=== PATIENT | male | born 1945 | race Hispanic/Latino ===

== ENCOUNTER 2019-01-07 08:42 | Day surgery (SDC) | payer MEDICARE ==
[2019-01-05 14:34] LABS: BASOPHILS % (AUTO) 0.8 % (0.0-5.0); EOSINOPHILS % (AUTO) 4.7 % (0.0-8.0); HEMATOCRIT 41.9 % (42-54); LYMPHOCYTES % (AUTO) 30.5 % (21.0-51.0); MEAN CORPUSCULAR HEMOGLOBIN 33.7 pg (27.0-33.0); MEAN CORPUSCULAR HGB CONC 34.6 g/dL (32.0-36.0); MEAN CORPUSCULAR VOLUME 97.2 fL (79-99); MONOCYTES % (AUTO) 7.4 % (3.0-13.0); NEUTROPHILS % (AUTO) 56.6 % (40.0-77.0); PLATELET COUNT (AUTO) 157 K/uL (130-400); RED BLOOD CELL COUNT(AUTO) 4.31 MIL/uL (4.50-6.20); RED CELL DISTRIBUTION WIDTH 13.5 % (11.0-15.5); WHITE BLOOD COUNT (AUTO) 6.1 K/uL (4.8-10.8)
[2019-01-05 14:37] VITALS: BP 126/66
[2019-01-05 14:44] LABS: CREATININE 1.2 mg/dL (0.5-1.5); POTASSIUM 4.5 mmol/L (3.5-5.1)
[2019-01-05 15:17] LABS: APPEARANCE,URINE Clear (CLEAR); BILIRUBIN,URINE Negative (NEGATIVE); COLOR,URINE Yellow (YELLOW); GLUCOSE, URINE (UA) Negative (NEGATIVE); KETONES,URINE Negative (NEGATIVE); LEUKOCYTE ESTERASE ,URINE Negative (NEGATIVE); NITRATE,URINE Negative (NEGATIVE); OCCULT BLOOD,URINE Trace (NEGATIVE); PROTEIN,URINE Negative (NEGATIVE); UROBILINOGEN,URINE 0.2 mg/dL (0.2-1.0)
[2019-01-05 15:32] LABS: BACTERIA,URINE None Seen /HPF (None Seen); RBC,URINE None Seen /HPF (0-1); SQUAMOUS EPITHELIAL CELL,UR None Seen /HPF (0-2); WBC,URINE None Seen /HPF (0-1)
[2019-01-07] VITALS (15 sets, daily range): BP systolic 104–138; BP diastolic 59–77
[~2019-01-07] VITALS: Ht 177.8 cm; Wt 78.6 kg
[~2019-01-07 08:42] MED LIST: ASPI-555 PO; ATEN25TA PO; CETI10TA57 PO; GLUCOSAMINE PO; LISI2.5T2 PO; METF-444 PO; OMEG-116 PO; ROSU10TA28 PO; TAMS-1 PO; VITAMIN B12 PO
[2019-01-07] MEDS ORDERED: LIDOCAINE PF 2% 5ML ABBOJECT ONE (09:57)
[2019-01-07] MEDS: LACTATED RINGERS 1000ML 1,000 ML IV SCH ×2 (09:57→10:43)
[2019-01-07] MEDS ORDERED: PROPOFOL 10 MG/ML 20ML VIAL IV ONE (09:58)
[2019-01-07] MEDS ORDERED: ROCURONIUM 10MG/1ML SYR 10 MG/ML ML ONE (09:58)
[2019-01-07] MEDS ORDERED: MIDAZOLAM HCL 1 MG/ML 2ML VIAL ONE (09:58)
[2019-01-07] MEDS ORDERED: FENTANYL CITRATE PF 50 MCG/1 ML 2ML VIAL ONE (10:00)
[2019-01-07] MEDS ORDERED: EPHEDRINE SULFATE 50 MG/ML AMPULE ONE (10:20)
[2019-01-07] MEDS ORDERED: NEOSTIGMINE 5MG/5ML SYR IV ONE (11:20)
[2019-01-07] MEDS ORDERED: GLYCOPYRROLATE 1 MG/5 ML SYRINGE ONE (11:20)
[2019-01-07] MEDS ORDERED: MORPHINE SULFATE 2 MG/ML 1ML SYG ONE (11:35)
== END 2019-01-07 13:25 | disposition home or self-care (01) ==
LOC: DAH 08:42
PROVIDERS: ATTEND Surgery
DX: K40.90 Unilateral inguinal hernia, without obstruction or gangrene, not specified as recurrent (principal); I25.10 Atherosclerotic heart disease of native coronary artery without angina pectoris; E11.9 Type 2 diabetes mellitus without complications; I10 Essential (primary) hypertension; E78.5 Hyperlipidemia, unspecified; E66.3 Overweight; Z68.25 Body mass index [BMI] 25.0-25.9, adult; Z79.82 Long term (current) use of aspirin; Z79.84 Long term (current) use of oral hypoglycemic drugs; Z79.899 Other long term (current) drug therapy; Z95.1 Presence of aortocoronary bypass graft; Z98.890 Other specified postprocedural states; Z96.651 Presence of right artificial knee joint; Z80.3 Family history of malignant neoplasm of breast; Z82.49 Family history of ischemic heart disease and other diseases of the circulatory system; Z83.3 Family history of diabetes mellitus
CPT/HCPCS: 36415; 49505; 64486; 80048; 81001; 82948 ×2; 85025; A4450; A4452; A4930; C1729; C1781; J2001; J2250; J2704; J2710; J3010; J3490 ×2

== ENCOUNTER → 2024-02-17 | Outpatient (CLI) | payer OTHER, MEDICARE ==
[~2024-02-17] MED LIST changes: -ASPI-555 PO; +ASPI-556 PO; +LISI2.5T13 PO; -LISI2.5T2 PO; -ROSU10TA28 PO; +ROSU10TA72 PO
== END | disposition home or self-care (01) ==
LOC: OIH 12:49
PROVIDERS: ATTEND Family Medicine
DX: M25.462 Effusion, left knee (principal); M81.0 Age-related osteoporosis without current pathological fracture; M25.562 Pain in left knee
CPT/HCPCS: 73562